=== PATIENT | male | born 1980 | race African-American/Black ===

== ENCOUNTER 2018-06-27 00:10 | Emergency (ER) | payer BC ==
[~2018-06-27] VITALS: Ht 188 cm; Wt 102.1 kg
[2018-06-27 00:16] VITALS: Ht 188 cm; Wt 102.1 kg
[2018-06-27 01:00] LABS: BASOPHILS 0.4 % (0-2); EOSINOPHILS 0.4 % (0-7); HEMATOCRIT 41.2 % (42.0-54.0); HEMOGLOBIN 14.3 g/dL (13.5-17.5); LYMPHOCYTES 35.1 % (15-50); MCH 29.4 pg (26.0-34.0); MCHC 34.7 g/dL (31.0-37.0); MCV 84.6 fL (80.0-100.0); MEAN PLATELET VOLUME 11.1 fL (7.4-10.4); MONOCYTES 7.4 % (2-11); NEUTROPHILS 56.7 % (40-80); PLATELET COUNT 176 10x3/uL (130-400); RBC 4.87 10x6/uL (4.20-6.10); RDW 12.8 % (11.5-14.5); WBC 2.7 10x3/uL (4.8-10.8)
[2018-06-27 01:04] LABS: APPEARANCE CLEAR (CLEAR); BILIRUBIN NEGATIVE (NEGATIVE); COLOR YELLOW (YELLOW); GLUCOSE NEGATIVE (NEGATIVE); KETONE NEGATIVE (NEGATIVE); NITRITE NEGATIVE (NEGATIVE); PROTEIN 1+ mg/dL (NEGATIVE); UROBILINOGEN NORMAL (NORMAL)
[2018-06-27 01:07] LABS: BACTERIA NONE SEEN /hpf (NONE SEEN); EPITHELIAL CELLS 0-5 /hpf (0-5); RED CELLS - URINE 0-5 /hpf (0-5); WHITE CELLS - URINE 0-5 /hpf (0-5)
[2018-06-27 01:12] LABS: ALBUMIN 3.8 g/dL (3.4-5.0); ALKALINE PHOSPHATASE 48 U/L (46-116); ALT (SGPT) 26 U/L (10-68); CALC OSMOLALITY 285 mosm/kg (275-300); CALCIUM 8.8 mg/dL (8.5-10.1); CARBON DIOXIDE 29.2 mmol/L (21.0-32.0); CHLORIDE - SERUM 104 mmol/L (98-107); CREATININE - SERUM 1.2 mg/dL (0.6-1.3); GLUCOSE 110 mg/dL (74-106); POTASSIUM - SERUM 3.6 mmol/L (3.5-5.1); PROTEIN - SERUM 7.6 g/dL (6.4-8.2); SODIUM 143 mmol/L (136-145); UREA NITROGEN 12 mg/dL (7-18); eGFR NON AFRICAN AMERICAN 73 mL/min (90-120)
[2018-06-27 01:15] LABS: AMYLASE - SERUM 49 U/L (25-115); LIPASE 69 U/L (73-393)
[2018-06-27 01:18] LABS: TROPONIN-I < 0.017 ng/mL (0.000-0.060)
[2018-06-27] MEDS ORDERED: ZOFRAN ODT4 MG/UDTAB PO (02:00)
[2018-06-27 02:27] VITALS: BP 117/63
== END 2018-06-27 02:28 | disposition home or self-care (01) ==
LOC: D.ER 00:10
PROVIDERS: Family Medicine
DX: T62.91XA Toxic effect of unspecified noxious substance eaten as food, accidental (unintentional), initial encounter (principal); Y92.511 Restaurant or cafe as the place of occurrence of the external cause; R11.2 Nausea with vomiting, unspecified